=== PATIENT | female | born 1965 | race Two or more races ===

== ENCOUNTER → 2018-10-02 | Day surgery (SDC) | payer BC ==
[~2018-10-02] VITALS: Ht 162.6 cm; Wt 64.9 kg
[2018-10-02] VITALS (9 sets, daily range): BP systolic 109–125; BP diastolic 68–87
[~2018-10-02] MED LIST: ACETAMINOP325 MG/10 PEG; ACETYLCYST200 MG/1 M INH; ASPIRIN 325 MG TAB ONE; ASPIRIN81 MG PEG; CALAMINE LOTIO177 ML TOP; CHOLECALCIFEROL1 GM PEG; CUBICIN500 MG/VIA IV; DIPHENHYDRAMINE HCL INJ 50 MG/ML VIAL ONE; ENOXAPARIN40 MG/0.4 SC; FENTANYL CITRATE/PF 100MCG/2 ML INJ ONE; GABAPENTIN100 MG PO; HEPARIN 25,000U/0.45% NS 250ML 1,100 UNIT in Premix Bag 250 ML IV SCH; HEPARIN SOD/SOD CHLORIDE 2,000 ML ONE; INVANZ1 GM IV; IOPAMIDOL 300MG/ML 100 ML INFUS..BTL IV ONE; IPRATROPIU0.2 MG/1 M NEB; LANSOPRAZOLE30 MG PEG; LEVETIRACETAM500 MG PEG; LIDOCAINE HCL 1% LOCAL INJ 20 ML VIAL ONE; METOPROLOL TART25 MG PEG; MIDAZOLAM HCL 2 MG/2 ML VIAL ONE; MIRTAZAPINE15 MG PO; MORPHINE SULFATE INJ 4 MG/ML INJ 1ML ONE; MORPHINE-NS2 MG/1 ML IV; MULTIVITAMINS1 EAC8 PEG; NYSTATIN1 EAC1 TOP; ONDANSETRON2 MG/1 ML IV; ONDANSETRON2 MG/1 ML PO; OXYCODONE HCL10 MG PEG; OXYCODONE HCL5 MG PEG; QUESTRAN PACKET4 GM PEG; SILVER GEL14.2 GM TOP; SODIUM CHLORIDE 0.9% 1000ML 1,000 ML ONE; TICAGRELOR 90 MG TABLET ONE; VITAMIN A10000 UNIT PO; ZINC SULFATE220 M1 PEG
--- NOTE | 2018-10-02 16:30 | NUR ---
VO from Dr Ale Jimenez not to give ordered 180 Brillanta or 325 ASA. Medications wasted.
--- NOTE | 2018-10-02 17:15 | NUR ---
Continuity of care post procedure, review of procedural findings and medications given. Patient easily aroused. maintains airway and saturations of 96%-98% simple mask 6 L. No gross issues of pressure, pallor or dysrhythmia. IV site patent with NS 0.9% at 75ml/hr per imed. patient hemodynamically stable with hemostasis right and left groin 7fr sheaths dressing CDI w/o s/s of bleeding. sheaths sutured bilateral. Pt with increased comfort after moving to stretcher. Fresh linen and gown provided. Dressings to left lateral thigh and coccyx area intact. transported to [facility] for continuing monitoring [place] [facility] [place] bilateral femoral access with kissing iliac stents. left iliac spiral dissection pending transfer for higher level of care Sheath puller: luis - suture of sheaths Meds Given Intra-Procedure Sedatives Versed - 4 mg Fentanyl - 200 mcg Benadryl - 50mg Morphine - 2mg Anticoagulants Heparin - 58143 Units Fluids Input - 300 ml Output - 100 ml estimated Contrast Isovue 300 - 390ml Other Meds NA
--- NOTE | 2018-10-02 17:30 | NUR ---
Family expressing transfer to [facility] for continuing care of left foot and for vascular services. Message with Dr Jimenez regarding request. Spouse leaving and will return. pt resting with eyes closed w/o gross need or distress.
--- NOTE | 2018-10-02 17:50 | NUR ---
Dr Jimenez return message. Family not available. Pt resting w/ eyes closed. Asked to convey expediency of treatment to closest capable facility
--- NOTE | 2018-10-02 19:30 | NUR ---
Report to Uche Aguilera RN to [facility] of case findings [phone]. All questions answered to satisfaction. EMS arriving to transport patient. MOT completed/chart copy provided. Pt transferred to EMS stretcher w/o incident. Svetlana OCASIO and [facility] oversaw programming of pump for heparin. family aware of transfer and to meet patient at receiving facility. No outliers to be addressed. Bilateral sheaths remain intact and w/o s/s of hematoma. PT affect +.
--- NOTE | 2018-11-02 18:50 | Operative Report ---
DATE OF PROCEDURE: 10/02/2018 SURGEON: Garth Jimenez DO PREPROCEDURE DIAGNOSIS: Peripheral arterial disease found by arterial Doppler. POSTPROCEDURE DIAGNOSIS: Peripheral arterial disease found by arterial Doppler. PROCEDURES PERFORMED: 1. Abdominal aortogram 2. Intravascular ultrasound 3. Moderate sedation 60 minutes 4. Bilateral common iliac stents 5. First order peripheral angiography ESTIMATED BLOOD LOSS: Less than 20 mL. SPECIMENS REMOVED: None. PROCEDURE IN DETAIL: After informed consent was obtained, the patient was brought to the cardiac catheterization laboratory in a fasting and nonsedated state. Bilateral groins were prepped and draped in the usual sterile fashion. Lidocaine 2% was infiltrated over the right anterior groin for local anesthesia. Using a micropuncture needle, the right common femoral artery was accessed via modified Seldinger technique and a 5-Czech sheath was placed. 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 A decision was made to perform percutaneous coronary intervention, so I obtained contralateral left common femoral access. I crossed the lesion with an Advantage wire without great difficulty and placed in the abdominal aorta. Next, I performed balloon angioplasty of the lesion with mild yarsanism of flow, however, there was significant recoiling and stenosis still present. Next, a decision was made to perform bilateral iliac kissing stents given the extent of the ostium that was involved. Next, the bilateral ostia were stented with 8 mm [employer] balloon expandable covered stents. Subsequent angiography revealed excellent results in the right iliac, however, there was some haziness and diminished flow in the left system. The midportion was stented with a 7 x 58 balloon expandable stent as well in the common to external iliac artery. Next, I performed [place] IVUS, which revealed that there was a small dissection flap likely that we had stented into on the left iliac system. Decision was made to terminate the procedure at this point in time and transfer her for possible further intervention percutaneously or open surgical options. Of note, there was better yarsanism of flow in the left lower extremity at the end of the case. DO ANGELICA Gannon/MODL /[id number] [facility] + HOSPITALSJules
== END | disposition short-term general hospital (02) ==
LOC: CATH LAB 13:09
PROVIDERS: ATTEND Internal Medicine Cardiovascular Disease
DX: I73.9 Peripheral vascular disease, unspecified (principal); I77.1 Stricture of artery; Z95.820 Peripheral vascular angioplasty status with implants and grafts; L08.9 Local infection of the skin and subcutaneous tissue, unspecified; Z88.0 Allergy status to penicillin; Z79.82 Long term (current) use of aspirin
CPT/HCPCS: 36415; 37221; 75625; 81025; 85730; C1725 ×2; C1766; C1769 ×3; C1874 ×3; C1876; C1887; J1200; J1644; J2001; J2250; J2270; J7030; Q9967